=== PATIENT | male | born 1990 | race African-American/Black ===

== ENCOUNTER 2016-12-19 00:30 | Emergency (ER) | payer OTHER ==
[~2016-12-19] VITALS: Ht 193 cm; Wt 79.4 kg
[2016-12-19 00:44] VITALS: BP 137/83
== END 2016-12-19 03:10 | disposition left against medical advice (07) ==
LOC: M ED 01:49
DX: Z53.29 Procedure and treatment not carried out because of patient's decision for other reasons (principal)